=== PATIENT | female | born 1990 | race Caucasian/White ===

== ENCOUNTER 2017-09-25 08:49 | Emergency (ER) | payer OTHER ==
[2017-09-25 09:12] VITALS: BMI 22.1
--- NOTE | 2017-09-25 09:22 | PDOC ---
History of Present Illness - General Chief Complaint: Pain, Acute Stated Complaint: SUPRAPUBIC PAIN Time Seen by Provider: 09/25/17 09:18 Past History - Past Medical History Allergies/Adverse Reactions: Allergies Allergy/AdvReac Type Severity Reaction Status Date / Time NSAIDS (Non-Steroidal Allergy Severe Swelling Verified 09/25/17 09:09 Anti-Inflamma Home Medications: Ambulatory Orders Divalproex [Depakote -] 250 mg PO BID 10/30/13 COPD: No Seizures: Yes Other medical history: POCS, MIGRANES - Immunization History Td Vaccination: Yes TDAP Vaccination: Yes Immunization Up to Date: Yes - Suicide/Smoking/Psychosocial Hx Smoking History: Never smoked Have you smoked in the past 12 months: Yes Number of Cigarettes Smoked Daily: 5 Information on smoking cessation initiated: No 'Breaking Loose' booklet given: 11/05/13 Hx Alcohol Use: No Substance Use Type: None *Physical Exam - Vital Signs Last Vital Signs Temp Pulse Resp BP Pulse Ox 97.8 F 67 19 111/54 97 09/25/17 09:09 09/25/17 09:09 09/25/17 09:09 09/25/17 09:09 09/25/17 09:09
[2017-09-25 09:43] LABS: HCG,QUALITATIVE URINE NEGATIVE
[2017-09-25 09:50] LABS: URINE APPEARANCE SLCLOUDY; URINE BILIRUBIN NEGATIVE (NEGATIVE); URINE BLOOD NEGATIVE (NEGATIVE); URINE COLOR YELLOW; URINE GLUCOSE (UA) NEGATIVE (NEGATIVE); URINE KETONE NEGATIVE (NEGATIVE); URINE LEUK ESTERASE TRACE (NEGATIVE); URINE NITRITE NEGATIVE (NEGATIVE); URINE PROTEIN NEGATIVE (NEGATIVE); URINE UROBILINOGEN NEGATIVE mg/dL (0.2-1.0)
[2017-09-25] MEDS ORDERED: traMADol HCL 50 MG TABLET PO ONE (09:54)
[2017-09-25 09:55] LABS: EPI CELLS MODERATE /HPF (FEW); URINE MUCUS MODERATE
--- NOTE | 2017-09-25 09:59 | PDOC ---
History of Present Illness - General Chief Complaint: Pain, Acute Stated Complaint: SUPRAPUBIC PAIN Time Seen by Provider: 09/25/17 09:18 History Source: Patient - History of Present Illness Timing/Duration: reports: other (last night) Abdominal Pain Onset Location: reports: suprapubic Pain Radiation: reports: back Past History - Past Medical History Allergies/Adverse Reactions: Allergies Allergy/AdvReac Type Severity Reaction Status Date / Time NSAIDS (Non-Steroidal Allergy Severe Swelling Verified 09/25/17 09:09 Anti-Inflamma ibuprofen Allergy Verified 09/25/17 11:10 tramadol AdvReac Severe Itching Verified 09/25/17 11:11 Home Medications: Ambulatory Orders Oxycodone HCl/Acetaminophen [Percocet 5-325 mg Tablet] 1 tab PO Q4H #6 tablet MDD 6 tab 09/25/17 levETIRAcetam [Keppra -] 1,000 mg PO BID 09/25/17 COPD: No Seizures: Yes Other medical history: POCS, MIGRANES - Reproductive History Is Patient Now?: No - Immunization History Td Vaccination: Yes TDAP Vaccination: Yes Immunization Up to Date: Yes - Suicide/Smoking/Psychosocial Hx Smoking History: Never smoked Have you smoked in the past 12 months: Yes Number of Cigarettes Smoked Daily: 5 Information on smoking cessation initiated: No 'Breaking Loose' booklet given: 11/05/13 Hx Alcohol Use: No Substance Use Type: None Review of Systems - Review of Systems Constitutional: No: Chills, Fever ABD/GI: No: Constipated, Diarrhea, Nausea, Vomiting : No: Dysuria, Discharge, Flank Pain, Hematuria *Physical Exam - Vital Signs Last Vital Signs Temp Pulse Resp BP Pulse Ox 97.8 F 67 19 111/54 99 09/25/17 09:09 09/25/17 09:09 09/25/17 09:09 09/25/17 09:09 09/25/17 09:22 - Physical Exam General Appearance: Yes: Appropriately Dressed, Mild Distress HEENT: positive: Normal Voice Neck: positive: Supple Respiratory/Chest: negative: Respiratory Distress Gastrointestinal/Abdominal: positive: Tender (to suprapubic area diffusely), Soft Musculoskeletal: negative: CVA Tenderness Integumentary: positive: Dry, Warm Neurologic: positive: Fully Oriented, Alert, Normal Mood/Affect ED Treatment Course - ADDITIONAL ORDERS Additional order review: Laboratory Results 09/25/17 09:27 Urine Color Yellow Urine Appearance Slcloudy Urine pH 5.0 Ur Specific [place] 1.023 Urine Protein Negative Urine Glucose (UA) Negative Urine Ketones Negative Urine Blood Negative Urine Nitrite Negative Urine Bilirubin Negative Urine Urobilinogen Negative Ur Leukocyte Esterase Trace Urine HCG, Qual Negative - RADIOLOGY Radiology Studies Ordered: Category Date Time Status PELVIS(OTHER) US [US] Stat Ultrasound 09/25/17 09:47 Ordered PELVIS(OTHER) US [US] Stat Ultrasound 09/25/17 09:47 Stop Req TRANSVAGINAL ULTRASOUND US [US] Stat Ultrasound 09/25/17 09:46 Ordered Medical Decision Making - Medical Decision Making 09/25/17 09:54 27-year-old female, history of migraines and epilepsy, here with severe pelvic pain. Patient states she was seen in the ED 1 month ago for same and had ultrasound done showing possible left hemorrhagic cyst. Recommendation was to repeat ultrasound in 6-8 weeks to ensure resolution. There was no torsion seen at the time. Patient has yet to follow-up with her [facility]. States pain recurred last night, is located to lower abd and radiates to lower back. No dysuria, vaginal discharge, bleeding, nausea, vomiting, fever or chills. See exam R/o torsion Recurrent pelvic pain Dx w/ L ovarian cyst 1 month ago at [facility] on US (previous visit under different J# [id number]), no torsion at the time, labs and ua neg -pain control -upreg -US 09/25/17 11:15 09/25/17 11:21 After being given tramadol in ED patient reported that she thinks she might be allergic to meds but not certain what the reaction is. Has no rash, itching or difficulty breathing at the time. Dose of Benadryl given. On review of patient' s previous visit under J #[id number], it is documented that patient is allergic to motrin, toradol and tramadol but only motrin allergy is documented on todays chart. I informed registrar of different MRN's so that charts can be merged in the near future. Will have nurse update records and continue to observe for any adverse rxn 09/25/17 11:48 L ovarian cyst seen on US 08/27/17 has since resolved. Today there is an enlarged right ovary containing 4 x 4 by 4 cystic lesion, representing most likely a hemorrhagic cyst as per radiology w/ arterial and venous flow. 6-12 weeks ultrasound recommended for re-evaluation. Patient states pain has significantly improved. Will dc with pain control and close [facility] follow-up. Strict return precautions given 09/25/17 12:07 *DC/Admit/Observation/Transfer Diagnosis at time of Disposition: Pelvic pain Ovarian cyst Qualifiers: Laterality: right Qualified Code(s): N83.201 - Unspecified ovarian cyst, right side - Discharge Dispostion Disposition: HOME Condition at time of disposition: Improved - Prescriptions Prescriptions: Oxycodone HCl/Acetaminophen [Percocet 5-325 mg Tablet] 1 tab PO Q4H #6 tablet MDD 6 tab - Referrals Referrals: Igor Gallo MD [Staff Physician] - - Patient Instructions Printed Discharge Instructions: DI for Ovarian Cyst Additional Instructions: Take pain meds as directed and follow-up with Dr. Jurado of [facility] next week Symptoms worsen and you develop nausea, vomiting or fever, return to ER immediately - Post Discharge Activity
[2017-09-25] MEDS ORDERED: traMADol HCL 50 MG TABLET ONE (10:00)
[2017-09-25] MEDS ORDERED: diphenhydrAMINE HCL 25 MG CAPSULE (FP) PO ONE ×3 (10:13→10:29)
[2017-09-25] MEDS ORDERED: ACETAMINOPHEN 325 MG TABLET (FP) PO ONE (11:21)
[2017-09-25] MEDS ORDERED: ACETAMINOPHEN 325 MG TABLET (FP) ONE (11:36)
[2017-09-25 12:39] VITALS: BP 116/74; PULSE 80; TEMP 98.6
== END 2017-09-25 12:39 | disposition home or self-care (01) ==
LOC: JER 08:49
DX: N83.201 Unspecified ovarian cyst, right side (principal); E28.2 Polycystic ovarian syndrome; G43.909 Migraine, unspecified, not intractable, without status migrainosus; G40.909 Epilepsy, unspecified, not intractable, without status epilepticus
CPT/HCPCS: 76830-TC; 76856-TC; 81003; 81015; 84703; 99283-25